=== PATIENT | female | born 1970 | race African-American/Black ===

== ENCOUNTER → 2016-11-30 05:54 | Day surgery (SDC) | payer OTHER ==
[~2016-11-30 05:54] MED LIST: Buffered Lidocaine 1% SYR 3ML* 3 ML/SYR SYRINGE INTRADERM ONE; Buffered Lidocaine 1% SYR 3ML* 3 ML/SYR SYRINGE ONE; Dexamethasone IV* 4 MG/ML 1 ML (4 MG) IV SLOW PU ONE; Dexamethasone IV* 4 MG/ML 1 ML (4 MG) ONE; DiMENhydriNATE IV* 50 MG/ML VIAL IV PUSH PRN; Famotidine IV* 10 MG/ML 2 ML (20 mg) IV ONE; Famotidine IV* 10 MG/ML 2 ML (20 mg) ONE; Lidocaine 2% MPF* 2 ML VIAL ONE; Midazolam* 1 MG/ML 2 ML VIAL (2 MG) ONE; Ondansetron INJ* 2 MG/ML VIAL IV PRN; Ondansetron INJ* 2 MG/ML VIAL ONE; PROCHLORPERAZINE INJ 5 MG/ML 2 ML VIAL IV PRN; Propofol* 10 MG/ML 20 ML BTL IV PUSH ONE; Scopolamine 1.5 mg* PATCH ONE; Scopolamine 1.5 mg* PATCH TRANSDERM ONE; Scopolamine PATCH Remove* 1 NOTE MISC PATCH OFF ONE; fentaNYL* 50 MCG/ML 2 ML VIAL (100 MCG VIAL) ONE; oxyCODONE/Acetamin 5/325 MG* TAB ONE
[2016-11-30] MEDS: fentaNYL* 50 MCG/ML 2 ML VIAL (100 MCG VIAL) IV PRN ×3 (09:04→10:20)
[2016-11-30 10:58] VITALS: BP 104/63
--- NOTE | 2016-12-01 03:03 | OP ---
DATE OF OPERATION: [birth year] - [facility] DATE OF : 70 SURGEON: Gary Biswas MD PAINT STRIPPER: None. ANESTHESIOLOGIST: Darci Abraham MD ANESTHESIA: General endotracheal tube. PRE-OP DIAGNOSES: Menorrhagia and fibroids. POST-OP DIAGNOSES: Menorrhagia and fibroids. OPERATIVE PROCEDURE: D and C hysteroscopy, MyoSure, and ablation. FINDINGS: There was small seedling fibroid at the fundus and there were small submucous fibroids on the left posterior wall and on the left anterior wall and the right posterior low uterine segment. ESTIMATED BLOOD LOSS: Minimal. SPECIMEN: Include fibroids and endometrium. FLUIDS: Include 300 cc of saline deficit. DESCRIPTION OF PROCEDURE: The patient identified, procedure identified as a D and C hysteroscopy, MyoSure, and endometrial ablation. The patient was taken to the operating room and prepped and draped in the usual fashion in the dorsal lithotomy position under general anesthesia. Two single-tooth tenaculum were placed on the anterior lip of the cervix. Cervix was sounded to 10 cm. The cervical length was sounded to 3-1/2 cm making the cavity length 6.5. The hysteroscope was inserted and the above findings were noted. The MyoSure was placed through this and used to resect the small submucous fibroids down to the level, flushed with the uterine wall. The fundal seedling fibroid could not be resected due to its location. At this time, the MyoSure hysteroscope was removed and the NovaSure device was opened. The array was checked. The device was placed within the cavity and manipulated to a cavity width of 5.0 was obtained. Power setting was 179. The CO2 perforation test was performed and the device passed. MyoSure ablation was enabled and done for 50 seconds. At that time, as it was winding down the vacuum pressure was lost at 50 seconds and the procedure was stopped. Because most of the ablation had been done, it was chose not to reattempt an ablation. The hysteroscope was actually re- inserted and good ablation was noted. No perforations were noted. All instruments were removed from the vagina. Sponge and instruments counts were correct. The patient returned to recovery room in stable condition. [id number]/[facility] #: [id number] [facility]
== END | disposition home or self-care (01) ==
LOC: OR 05:54
PROVIDERS: ATTEND Obstetrics & Gynecology
DX: N92.0 Excessive and frequent menstruation with regular cycle (principal); D25.0 Submucous leiomyoma of uterus
CPT/HCPCS: 88305; A9270-GY; J1100; J2250; J2405; J2704; J3010

== ENCOUNTER 2017-10-03 10:39 | Observation (INO) | payer OTHER ==
[2017-10-03] MEDS ORDERED: Clindamycin 900 MG IVPREMIX(* 900 MG/50 ML SDV IV ONE (12:00)
[2017-10-03] MEDS ORDERED: Ibuprofen TAB* 800 MG PO ONE (12:00)
[2017-10-03] MEDS ORDERED: oxyCODONE SR TAB(*) 10 MG TAB.SR PO ONE (12:00)
[2017-10-03] MEDS ORDERED: Ondansetron INJ* 2 MG/ML VIAL IV ONE ×2 (12:00→20:00)
[2017-10-03] MEDS ORDERED: LORazepam TAB(*) 1 MG PO ONE (12:00)
[2017-10-03] MEDS ORDERED: Scopolamine 1.5 mg* PATCH TRANSDERM ONE (12:00)
[2017-10-03] MEDS ORDERED: Lidocaine 1% INJ* 10 MG/ML 30 ML SDV ONE (12:21)
[2017-10-03] MEDS ORDERED: Iohexol 350 (CONTRAST) 200 ML MDV IV ONE (12:21)
[2017-10-03] MEDS ORDERED: Heparin 2 UNITS/ML IVPREMIX* 2,000 ML IV ONE (12:21)
[2017-10-03] MEDS ORDERED: Midazolam* 1 MG/ML 10 ML VIAL (10 MG) ONE (12:38)
[2017-10-03] MEDS ORDERED: fentaNYL* 50 MCG/ML 5 ML VIAL (250 MCG VIAL) ONE (12:38)
[2017-10-03] MEDS ORDERED: Ketorolac INJ* 30 MG/ML 1 ML VIAL ONE ×2 (12:39→14:35)
[2017-10-03] MEDS ORDERED: nitroGLYCERIN DRIP* 25,000 MCG/250 ML BTL ONE (12:39)
[2017-10-03] MEDS ORDERED: HYDROmorphone INJ* 1 MG/ML CARPUJECT SYRINGE ONE (14:46)
[2017-10-03] MEDS: D5W 1/2 NS 1000 ML BAG* 1,000 ML IV SCH ×2 (15:15→20:45)
[2017-10-03] MEDS ORDERED: Acetaminophen TAB* 325 MG PO PRN (15:53)
[2017-10-03] MEDS: Ondansetron INJ* 2 MG/ML VIAL IV PRN (16:10)
--- NOTE | 2017-10-03 17:25 | RAD ---
CPT II Codes: 6045F Procedure(s) performed: * Pelvic arteriogram including the lower abdominal aorta, bilateral iliac arteries including the proximal portions of the superficial femoral arteries and femoral profundi. * Catheter arteriography of the bilateral uterine arteries. * Catheter embolization of the bilateral uterine arteries. Date of service: October 03, 2017 Indication for procedure: Heavy menstrual bleeding in the presence of uterine fibroids. Comparison: MRI of the pelvis dated September 09, 2017 Contrast: 80 mL Omnipaque 300 Fluoroscopy Time: 26.3 minutes Vessels Accessed: Percutaneous access was obtained with ultrasound guidance in the right common femoral artery in the retrograde direction towards the heart. Catheter arteriography, with the catheter tip located within the lumen of the following arteries, was performed at the lower abdominal aorta, bilateral common iliac arteries, bilateral external iliac arteries, bilateral Internal Iliac Arteries and bilateral Uterine Arteries. Anesthesia: Conscious sedation with IV Fentanyl and Versed as well as local 1% lidocaine injected locally at the arteriotomy site. Conscious sedation time: Timeout: 1305 hours Case end: 1452 hours Total conscious sedation time: 1 hour and 47 minutes Additional medications: * 450 mcg IA nitroglycerin injected intermittently throughout the course of the procedure to alleviate arterial spasm. * Intra-arterial Toradol, 15 mg injected into each uterine artery, for a total of 30 mg intra-arterial.. * Intravenous Toradol, 30 mg. * Transdermal scopolamine patch 1.5 mg applied to the mastoid process prior to the procedure beginning. * A total of 4 mg Zofran was administered intravenously. PROCEDURE NOTE AND INTRAPROCEDURAL IMAGING FINDINGS: Immediately prior to the procedure the patient signed consent after thoroughly discussing all risks and benefits. The patient was positioned on the fluoroscopy table in the supine position and the bilateral groins were shaved, prepped and draped in standard sterile fashion. Using fluoroscopic imaging the location of the right common femoral head was marked externally with a skin marker on the patient's groin. Utilizing sonographic guidance and palpation the right common femoral artery was cannulated overlying the right femoral head with an 18-gauge needle. An ultrasound image was saved. A 0.035 inch Bentson wire was slowly and smoothly advanced to the aortic bifurcation under fluoroscopic imaging. No buckling of the wire was visualized to indicate dissection. Over the wire a 5-Norwegian SideArm sheath was advanced into the artery and the inner stiffener was removed. Contrast was injected into the lower abdominal aorta to identify the level of the iliac bifurcation. Incidentally noted was a high iliac bifurcation at the level of the superior endplate of L3. A 5-Norwegian RUC catheter was used to access the contralateral left common iliac artery. A hydrophilic wire was advanced into the contralateral superficial femoral artery securing access over the iliac bifurcation and allowing advancement of a 5-Norwegian angled tip catheter. Contrast arteriography was performed at the left external iliac artery while slowly drawing back the catheter until the ostium of the left internal iliac was identified. With the tip of the catheter in the proximal most portion of the left internal iliac artery, angiography was performed to detail the branches of the left internal iliac artery which had depicted the uterine artery providing blood flow to the patient's uterine fibroid. Arteriograms in multiple oblique projections were performed to best discern the branch point of the uterine artery. Once the uterine artery was identified, a Renegade High-flow microcatheter and microwire were advanced into the parent catheter and, in conjunction with contrast angiography, the uterine artery was identified and selected with the micro catheter. Contrast arteriography with the tip of the microcatheter in the horizontal portion of the left uterine artery demonstrated significant arterial blood flow to the patient's uterus and fibroids. Also noted branching from the distal portions of the uterine artery with a small arterial branch partially filling the left ovary. The microwire was reinserted and an attempt was made to advance the microcatheter beyond the branch point of the left ovarian branch artery without success. The arterial blush over the left ovary supplied by this small branch artery was incomplete indicating that the left ovary continues to receive a majority blood flow from the left ovarian artery. It was decided that embolization of the left uterine artery according to protocol was unlikely to cause complete left ovarian infarction considering the apparent blood flow provided by the left ovarian artery to the left ovary. Under fluoroscopic control approximately 2 vials of 500-700 micron Embospheres and 1 vial of 700-900 micron Embospheres were slowly injected into the uterine artery to near complete stasis. Close to the conclusion of the embolization, 15 mg of Toradol was injected intra-arterially. The microcatheter was pulled back into the more proximal descending portion of the uterine artery and contrast angiography depicted near complete stasis of the uterine artery. The microcatheter was removed and replaced with an 0.035" guidewire. The 5-Norwegian curved tip catheter was replaced with a 5-Norwegian "Empress" catheter with the hairpin loop formed in the lower abdominal aorta. With the loop formed and the wire within the catheter, the system was slowly retracted gaining access to the ipsilateral right internal iliac artery. Contrast angiography with the tip of the 5-Norwegian catheter in the proximal most portion of the right internal iliac artery demarcated the right uterine artery and multiple oblique projections were obtained to best depict the origin of the uterine artery. Once the uterine artery was identified, a Renegade High-flow microcatheter and microwire were advanced into the parent catheter and, in conjunction with contrast angiography, the uterine artery was identified and selected with the micro catheter. Prior to embolization, contrast injection into the horizontal portion of the uterine artery demonstrated no large, obvious collateral blood flow to the right ovary or a definite cervicovaginal branch descending inferiorly. Intra-arterial nitroglycerin was injected intermittently to alleviate arterial spasm. Under fluoroscopic control approximately 2 vials of 500-700 micron Embospheres and 1 vial of 700-900 micron Embospheres were slowly injected into the uterine artery to near complete stasis. Close to the conclusion of the embolization, 15 mg of Toradol was injected intra-arterially. The microcatheter was pulled back into the more proximal descending portion of the uterine artery and contrast angiography depicted near complete stasis of the uterine artery. The microcatheter and wire were removed and the 0.035" wire was readvanced to the tip of the catheter. The system was then advanced towards the aorta. The contralateral left common iliac artery was accessed and the catheter and 0.035 inch wire were removed. The access sheath was removed and pressure was held at the common femoral arteriotomy for approximately 15 minutes. There were no signs of bleeding at the right groin access site and the site was dressed with sterile gauze and Tegaderm. The patient tolerated the procedure well and was transferred to the short stay recovery unit in stable condition for routine overnight observation and pain and nausea control. SUMMARY OF PROCEDURE, IMAGING FINDINGS AND INTERVENTIONS PERFORMED: 1. Diagnostic studies performed: * Arterial access was obtained at the right common femoral artery in the retrograde direction (i.e. towards the heart) with ultrasound guidance. A sonographic image was recorded. * Diagnostic catheter angiography (necessary to perform the appropriate interventions) was performed with the catheter tip in the lower abdominal aorta, bilateral common iliac arteries, right external iliac artery, bilateral internal iliac arteries and bilateral uterine arteries. * Catheter arteriography was performed of the lower abdominal aorta, bilateral iliac arterial system and specifically the bilateral uterine arteries. 2. Interpretation of diagnostic studies performed: * Right dominant bilateral hypertrophied uterine arteries filling the patient's uterus and multiple fibroids. * A small side branch artery was seen partially filling the left ovary. The blush of the left ovary was incomplete indicating that the left ovary receives at least some if not majority blood flow from the left ovarian artery. 3. Surgical interventions performed: * Near stasis embolization of the bilateral uterine arteries utilizing a total of 4 vials 500-700 um Embospheres and 2 vials 700-900 um Embospheres. * Attempt was made to advance the microcatheter beyond the branch point of the supplemental left ovarian branch artery without success (the branch artery came off of the distal portion of the left uterine artery). Embolization of the left uterine artery was completed as angiography indicated the left ovary received only small portion of its arterial flow from this branch artery as depicted by the minimal blush overlying the artery during uterine artery injection. 4. Interpretation of interventions performed: * Final arteriography demonstrated near complete stasis of the bilateral uterine arteries.. PLAN: 1. The patient will be admitted to short stay surgical unit for routine overnight observation including pain and nausea control. 2. Outpatient clinical and imaging follow-up according to the Interventional Radiology protocol.
[2017-10-03] MEDS ORDERED: HYDROmorphone INJ* 1 MG/ML CARPUJECT SYRINGE IV PRN (17:33)
--- NOTE | 2017-10-03 17:49 | PN ---
Progress Note - Progress Note Date of Service: 10/03/17 SOAP: Subjective: Episode of nausea with wretching, resolved since Zofran IV dose. No emesis. Pain currently controlled after Dilaudid 1mg. Objective: Selected Entries 10/03/17 16:37 Temperature 97.5 F Temperature Oral Source Pulse Rate 72 Respiratory 16 Rate Blood Pressure 120/64 (mmHg) Blood Pressure 78 Mean O2 Sat by Pulse 99 Oximetry Patient on Room Yes Air Sleepy, but arousable to voice. Oriented x 3 Abdomen and suprapubic pelvis are soft, minimally tender to palpation at uterine fundus Right CF arteriotomy site is soft, nontender, Dressing is CDI 2+ pulses at right SINGING TEACHER, pop and DPA Right leg neuromsucular intact Assessment: 47 YOF status post Uterine Fibroid Embolization with expected pain and nausea currently controlled. Plan: 1. Standard post UFE IR protocol. 2. Transition IV to PO medications at 0800 hours 10/04/17 barring any significant N/V or other events overnight. 3. Will add PRN Ativan 0.25 mg IV.
[2017-10-03] MEDS ORDERED: HYDROmorphone PCA* 20 MG/20 ML PCA.SYRING PCA SCH (19:00)
--- NOTE | 2017-10-03 19:38 | HP ---
CC: Alma Mays MD; Dr. Simon * HISTORY AND PHYSICAL: DATE OF ADMISSION: 10/03/17 PRIMARY CARE PROVIDER: Alma Mays MD ATTENDING PHYSICIAN WHILE IN THE HOSPITAL: Jase Macias MD * (report dictated by Emanuel Urbano NP). CONSULTING INTERVENTIONAL RADIOLOGIST: Dr. Simon. HISTORY OF PRESENT ILLNESS: I will refer you to Dr. Simon's H and P for further details. In short, Ms. Mclaughlin is a 47-year-old female patient, who is relatively healthy with the exception she has uterine fibroids. She underwent uterine ablation in the past. She was referred by her primary to Dr. Simon due to the fact that she having heavy menstruation for a possible uterine fibroid embolization, which she underwent today. We are asked to evaluate the patient for admission. The patient underwent the procedure, she is evaluated postprocedure. She states she is feeling well except that she is having some lower abdominal cramping. She denies feeling lightheaded. Denies feeling short of breath. She denies feeling dizzy. She says she is not having any chest pain. She says she is just having a significant amount of pain and some nausea. She says she is having no numbness or tingling to the lower extremity in the right side. Denies having any pain in her right groin. Again, we were asked to admit for Dr. Simon. PAST MEDICAL HISTORY: Significant for uterine fibroids. PAST SURGICAL HISTORY: 1. She has had a uterine ablation. 2. She has had x3. 3. She just today had a uterine fibroid embolization. MEDICATIONS: Her home meds according to her list include: 1. Vitamin B12, 1200 mg p.o. daily. 2. Vitamin D 1 tablet p.o. daily. 3. Vitamin C 1000 mg daily. 4. Iron 18 mg p.o. daily. 5. [place]-3 1 capsule p.o. daily. ALLERGIES TO MEDICATIONS: Include no known drug allergies. FAMILY HISTORY: Mother at the age of 42 from leukemia. Father from complications of diabetes. SOCIAL HISTORY: She does not smoke. She rarely drinks alcohol. Surrogate decision maker is her . She has 3 children. REVIEW OF SYSTEMS: There is no documented fever. She denied having any significant weight change. There was no double vision. She denies having any ear discharge. There is no rhinorrhea. No sore throat. No thyroid enlargement. Denied having any chest pain. There is no orthopnea. There is no nocturnal dyspnea. There was some abdominal cramping in the lower abdomen. She does admit to having some nausea, but there is no vomiting. She denies having any dysuria. No frequency. No loss of consciousness. No pruritus and no skin ulcerations. Review of 14 systems was completed, all others are negative. PHYSICAL EXAMINATION GENERAL: At this time, Ms. Mclaughlin is a 47-year-old female patient, she appears to be well nourished, well developed. She is sitting in the postoperative bed. She does not appear to be in any acute distress. VITAL SIGNS: Blood pressure 104/65, pulse 52, respirations 14, O2 sat 100%. HEENT: Head: Atraumatic, normocephalic. Eyes: EOMs are intact. Sclerae anicteric, not pale. Throat: Oral mucosa appears to be moist. No oropharyngeal erythema. NECK: Supple. LUNGS: Clear to auscultation bilaterally. No wheezes, rales, or rhonchi. HEART: Sounds S1, S2. Regular rate and rhythm. No murmurs, rubs, or gallop. ABDOMEN: Soft, flat, nontender. Bowel sounds were present. EXTREMITIES: Distal CSM checks are intact to the right and left lower extremity. She is not moving the right extremity as it to remain flat for the prescribed period of time by Dr. Simon, but she moves the upper extremities with 5/5 strength. NEUROLOGICALLY: She is awake, alert and oriented x3. No gross focal deficits. SKIN: Grossly intact. She has a puncture site to the right groin, which again the dressing was clean, dry and intact. No swelling was noted. DIAGNOSTIC STUDIES/LAB DATA: Outpatient labs from August 2016, reveal WBC of 3.5, RBC of 3.87, hemoglobin of 8.9, hematocrit 29, platelet count 240. I have labs from 2 days ago here in the chart that showed a sodium of 138, potassium 4.2, chloride 108, bicarb of 24, BUN 9, creatinine of 0.92. She had an MRI of the pelvis with and without, which showed enlarged uterus with multiple myomas as noted. Old medical records were reviewed. ASSESSMENT AND PLAN: Ms. Mclaughlin is a 47-year-old female patient presenting to Dr. Simon's service for a uterine fibroid embolization. We were asked to evaluate for admission. She will be admitted under observation status for: 1. Uterine fibroid embolization. We will defer the management to Dr. Simon and his team. We will monitor for any swelling at the surgical site. I will check her H and H tomorrow morning to make sure that this has remained stable. We will again continue with pain management and nausea per recommendations of Dr. Simon. In addition to this, we will follow postprocedure vital signs and we will continue to check neurovascular checks with vital signs. P.r.n. Zofran and a NIGHT BAKER have been ordered already. Activity restrictions as per Dr. Simon. Once this has been lifted at 1900, the patient can be up. 2. DVT prophylaxis; I placed her on SCDs. 3. Code status: Full code. 4. Fluids, electrolytes and nutrition. Clear liquid diet with transition to regular. TIME SPENT: Time spent on the admission was approximately 60 minutes; greater than half of the time spent [id number] with the patient obtaining my history and physical, other half of the time spent going over the plan of care with the patient and implementing the plan of care. I did discuss plan of care with my attending, Dr. Macias; he is in agreement. EMANUEL URBANO NP [id number]/[facility] #: [id number] SUHAIL
[2017-10-03] MEDS ORDERED: Ketorolac INJ* 15 MG/ML 1 ML VIAL IV PUSH ONE (20:00)
[2017-10-04] MEDS: Ondansetron INJ* 2 MG/ML VIAL IV PRN (03:26)
[2017-10-04] MEDS: D5W 1/2 NS 1000 ML BAG* 1,000 ML IV SCH (04:11)
[2017-10-04 05:52] LABS: Hematocrit 32 % (35-47); Hemoglobin 10.1 g/dl (12.0-16.0)
[2017-10-04] MEDS: Ondansetron ODT TAB* 4 MG PO SCH ×2 (08:16→13:28)
--- NOTE | 2017-10-04 08:34 | PN ---
Progress Note - Progress Note Date of Service: 10/04/17 SOAP: Subjective: Pain controlled, <2/10. Mild nausea, worse when up and walking. Has taken clears , no solid food. Objective: Selected Entries 10/04/17 10/04/17 03:24 05:00 Temperature 98.0 F Temperature Oral Source Pulse Rate 60 Respiratory 16 Rate Blood Pressure 107/58 (mmHg) Blood Pressure 68 Mean O2 Sat by Pulse 98 Oximetry Patient on Room Yes Air NAD, AAO x 3 Abdomen and suprapubic pelvis are soft, minimally tender when pressing uterine fundus Right CF arteriotomy site is soft, nontender Dressing is CDI 2+ pulses at right CLINICAL SERVICES DIRECTOR, pop and DPA RLE neuromuscular intact grossly Assessment: 47 YOF POD # 1 Uterine Fibroid Embolization with persistent mild nausea and good pain control. Plan: 1. Patient encouraged to eat small, mild breakfast (e.g. toast, oatmeal) and to walk around unit. 2. IV to PO medications. 3. If nausea persists, zofran 4 mg will be changed to compazine 10 mg.
[2017-10-04] MEDS ORDERED: Docusate LIQ* 100 MG/10 ML UDC PO PRN (08:38)
[2017-10-04] MEDS ORDERED: oxyCODONE/Acetamin 5/325 MG* TAB PO PRN (08:46)
[2017-10-04] MEDS ORDERED: PROCHLORPERAZINE INJ 5 MG/ML 2 ML VIAL IV PRN (08:50)
[2017-10-04] MEDS: Ketorolac TAB * 10 MG TAB PO SCH ×2 (09:54→13:28)
[2017-10-04] MEDS: oxyCODONE/Acetamin 5/325 MG* TAB PO PRN ×2 (09:55→13:27)
--- NOTE | 2017-10-04 11:29 | PN ---
Progress Note - Progress Note Date of Service: 10/04/17 SOAP: Subjective: Pain and nausea are currently controlled. Patient ate dry toast without emesis. Taking PO meds. Ambulates independently. Wants to go home. Objective: Selected Entries 10/04/17 10/04/17 08:05 10:24 Temperature 98.5 F Temperature Oral Source Pulse Rate 57 Respiratory 17 Rate Blood Pressure 105/57 (mmHg) O2 Sat by Pulse 100 Oximetry NAD, AAOx3 Abd soft, minimally tender to palpation Right groin is soft, NT Dressing is dry 2+ pulses in RLE Assessment: 47 YOF POD #1 s/p Uterine Fibroid Embolization with pain and nausea controlled with PO medications. Plan: 1. Anticipate DC to home today. 2. Standard post UFE medications regimen. 3. Standard post UFE follow up including RN call 10/07/17 and 10/11/17, then clinic visit 6 weeks post UFE. 4. Bhumika and her were given my contact information, including my cell phone number, and encouraged to contact me if any issues arise.
[2017-10-04 12:14] VITALS: BP 96/40
--- NOTE | 2017-10-05 12:45 | DS ---
CC: Dr. Alma Mays; Dr. Jerry Simon * DISCHARGE SUMMARY: DATE OF ADMISSION: 10/03/17 DATE OF DISCHARGE: 10/04/17 PRIMARY CARE PROVIDER: Dr. Alma Mays. INTERVENTIONAL RADIOLOGIST: Dr. Jerry Simon. DISCHARGING PROVIDER: JUS Gomez. SUPERVISING PHYSICIAN: Dr. Birdie Sylvester * (DICTATED BY JUS GOMEZ) PRIMARY DISCHARGE DIAGNOSIS: Status post uterine fibroid embolization. SECONDARY DISCHARGE DIAGNOSES: None. DISCHARGE MEDICATIONS: 1. Vitamin C 1000 mg p.o. daily. 2. Docusate 100 mg p.o. twice daily. 3. Ibuprofen 600 mg p.o. q.8 hours as needed for pain to start after completion of scheduled Toradol. 4. Iron supplement. 5. Toradol 10 mg p.o. q.6 hours x3 days. 6. [place] 3 fatty acids 1 capsule p.o. daily. 7. Zofran 4 mg p.o. q.6 hours. 8. Percocet 2 tablets p.o. q.6 hours as needed for pain. 9. Scopolamine patch 1 patch applied transdermally every 72 hours. 10. Vitamin B12, 1200 mg p.o. daily. 11. Vitamin D 1 tablet daily. Medication changes: 1. Start docusate. 2. Start Toradol. 3. Ibuprofen to follow Toradol. 4. Zofran. 5. Percocet. 6. Scopolamine patch. HOSPITAL IMAGING: Please see documentation from Dr. Jerry Simon. HOSPITAL COURSE: This is an otherwise healthy 47-year-old female who was admitted postprocedure from a uterine fibroid embolization for symptom managements. The patient has a history of large painful symptomatic fibroids. The patient's pain and nausea were appropriately treated during her hospital stay. At the time of discharge, she was still having some pain and nausea, both of which were manageable and she was able to tolerate some bland foods prior to discharge. No complications during this hospitalization. DISPOSITION AND FOLLOWUP PLAN: The patient will be discharged to home. Discharge medications as described above. She will call and discuss postop symptoms with Dr. Simon's office on Saturday with a 6-week followup plan. TIME SPENT: Greater than 30 minutes spent on this discharge. JUS GOMEZ [id number]/[facility] #: [id number] [facility] CENTERKimi
[2017-10-06] MEDS ORDERED: Scopolamine PATCH Remove* 1 NOTE MISC PATCH OFF ONE (12:00)
== END 2017-10-04 13:34 | disposition home or self-care (01) ==
LOC: CHICATH 10:39 → SSU 15:48
PROVIDERS: ADMIT Hospitalist; ATTEND Internal Medicine
DX: D25.9 Leiomyoma of uterus, unspecified (principal)
CPT/HCPCS: 36415; 37243; 76937; 84702; 85014; 85018; 96374; 96375; 96376; 99156; 99157; A9270-GY; C1884; C1887; G0378; J1170; J1644; J1885; J2250; J2405; J3010